=== PATIENT | female | born 2000 | race Caucasian/White ===

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

== ENCOUNTER 2018-07-16 14:04 | Outpatient (CLI) ==
--- NOTE | 2018-07-17 07:43 | DI ---
EXAM: Chest two views HISTORY: Dyspnea COMPARISON: None TECHNIQUE: Two views of the chest were performed FINDINGS: No airspace consolidation. Granulomas calcification. There is no pleural effusion or pne umothorax. The heart is normal in size. The mediastinal contour is normal. There are no acute abno rmalities of the bones. IMPRESSION: No acute cardiopulmonary process.
== END 2018-07-16 14:05 | disposition home or self-care (01) ==
LOC: RAD 14:04
PROVIDERS: ATTEND Physician Assistant
DX: R06.00 Dyspnea, unspecified (principal)
CPT/HCPCS: 93005; 93010

== ENCOUNTER 2018-10-05 14:14 | Outpatient (POV) | END 2018-10-05 17:00 | LOC: OUTPT 14:14 | PROVIDERS: ATTEND Otolaryngology | DX: H69.80 Other specified disorders of Eustachian tube, unspecified ear (principal) | CPT/HCPCS: 92557; 92567 ==

== ENCOUNTER 2018-10-25 15:13 | Outpatient (POV) | END 2018-10-25 17:00 | LOC: OUTPT 15:13 | PROVIDERS: ATTEND Otolaryngology | DX: H69.80 Other specified disorders of Eustachian tube, unspecified ear (principal) | CPT/HCPCS: 92552; 92567 ==

== ENCOUNTER 2019-05-04 08:18 | Emergency (ER) | payer MEDICAID, OTHER ==
[2019-05-04 08:30] VITALS: BP 105/66; TEMP 98.3; BMI 31.4
--- NOTE | 2019-05-04 08:39 | ED.PDOC ---
General ED Provider: Dr. 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 Back pain started Wednesday; cough and sore throat yesterday. Time Seen by Physician: 08:32 Mode of Arrival: Walk-In Information Source: Patient Primary Care Provider: YEVGENIY LYNCH Nursing and Triage Documentation Reviewed and Agree: Yes Does patient meet sepsis criteria?: No System Inflammatory Response Syndrome: Not Applicable Sepsis Protocol: For patient's 13 years and over: Temp is 96.8 and below OR 101 and greater Pulse >90 BPM Resp >20/minute Acutely Altered Mental Status Are patient's symptoms suggestive of a new infection, such as: -Pneumonia -Skin, Soft Tissue -Endocarditis -UTI -Bone, Joint Infection -Implantable Device -Acute Abdominal Infection -Wound Infection -Meningitis -Blood Stream Catheter Infection -Unknown Review of Systems - Review Of Systems Constitutional: Reports: No symptoms Ears, Nose, Mouth, Throat: Reports: Throat pain Respiratory: Reports: Cough Musculoskeletal: Reports: Back pain ( Upper) All Other Systems: Reviewed and Negative Past Medical History - Past Medical History Previously Healthy: Yes Endocrine: Reports: None Cardiovascular: Reports: None Respiratory: Reports: None Hematological: Reports: None Gastrointestinal: Reports: None Genitourinary: Reports: None Neuro/Psych: Reports: None Musculoskeletal: Reports: None Cancer: Reports: None Last Menstrual Period: 2 weeks - Surgical History General Surgical History: Reports: Tonsillectomy, Other (ear tubes ) - Family History Family History: Reports: None - Social History Smoking Status: Never smoker Hx Substance Use: No Alcohol Screening: None Physical Exam - Physical Exam Appearance: Well-appearing Ill-appearing: None Pain Distress: Mild Eyes: NADEGE, EOMI ENT: Nose normal, Oropharynx normal Neck: Supple Respiratory: Airway patent, Breath sounds clear, Breath sounds equal Cardiovascular: RRR, Pulses normal Musculoskeletal: Normal strength, ROM intact, No edema Skin: Warm, Dry, Normal color Neurological: Sensation intact, Motor intact, Alert, Oriented Psychiatric: Affect appropriate, Mood appropriate Interpretation - Radiology Interpretation Radiology Interpretation By: Radiologist Radiology Results: Negative Exam Interpreted: CXR, Other (Thoracic spine) Re-Evaluation - Re-Evaluation Time of Re-Evaluation: 10:28 Status: Unchanged (But sitting up in bed more comfortable in appearance) Vital Signs Stable: Yes Appearance: NAD Neuro: Alert and Oriented X3 Critical Care Note - Critical Care Note Total Time (mins): 10 Course - Course Orders, Labs, Meds: Lab Review 05/04/19 05/04/19 08:40 08:40 Urine Test Negative Influ A Molecular Assay Negative by naat Influ B Molecular Assay Negative by naat Orders Category Date Time Status FLU A & B MOLECULAR [FLU A/B MOLECULAR] Stat LAB 05/04/19 08:40 Completed RAPID STREP SCREEN [MOLECULAR GROUP A STREP] Stat LAB 05/04/19 08:40 Completed URINE Stat LAB 05/04/19 08:40 Completed CHEST, 2 VIEWS PA & LAT Stat RADS 05/04/19 08:41 Completed THORACIC SPINE, 3 VIEWS Stat RADS 05/04/19 08:42 Completed Rapid strep reported negative Vital Signs: Temp Pulse Resp BP Pulse Ox 05/04/19 08:19 98.3 F 92 H 20 105/66 95 Departure - Departure Time of Disposition: 10:34 Disposition: HOME SELF-CARE Discharge Problem: Upper back pain on right side Instructions: Arthralgia (ED) Condition: Good Pt referred to PMD for follow-up: Yes (Call for appointment) IPMP verified?: No Additional Instructions: Use pain medication as needed as prescribed; follow up with primary care if not better next week Prescriptions: Tramadol HCl [Ultram] 50 mg PO Q6H #14 tablet Tramadol HCl [Ultram] 50 mg PO Q6H #1 tablet Allergies/Adverse Reactions: Allergies No Known Allergies Allergy (Verified 05/04/19 08:24) Home Medications: Ambulatory Orders Sertraline HCl 50 mg PO DAILY 10/05/18 Tramadol HCl [Ultram] 50 mg PO Q6H #1 tablet 05/04/19 Tramadol HCl [Ultram] 50 mg PO Q6H #14 tablet 05/04/19
[2019-05-04 08:58] LABS: URINE PREGNANCY TEST NEGATIVE (NEGATIVE)
--- NOTE | 2019-05-04 09:56 | DI ---
EXAM: Chest two views HISTORY: Cough, back pain COMPARISON: 07/16/2018 TECHNIQUE: Two views of the chest were performed FINDINGS: No airspace consolidation. Granulomatous calcification. There is no pleural effusion or pneumothorax. The heart is normal in size. The mediastinal contour is normal. There are no acute a bnormalities of the bones. IMPRESSION: No acute cardiopulmonary process.
--- NOTE | 2019-05-04 10:26 | DI ---
EXAM: Thoracic spine three view HISTORY: Thoracic back pain COMPARISON: None FINDINGS: The vertebral bodies are normal in height. Alignment is normal. Intervertebral disk spaces are maintained. No fracture. IMPERSSION: Normal examination.
== END 2019-05-04 10:49 | disposition home or self-care (01) ==
LOC: ED 08:18
DX: M54.6 Pain in thoracic spine (principal); J02.9 Acute pharyngitis, unspecified
CPT/HCPCS: 81025; 87502; 87651; 99283